=== PATIENT | female | born 1960 | race Caucasian/White ===

== ENCOUNTER 2018-06-22 07:42 | Outpatient (CLI) | payer BC | END 2018-06-22 07:43 | disposition home or self-care (01) | LOC: BICMAMMO 07:42 | PROVIDERS: ATTEND Family Medicine | DX: N63.20 Unspecified lump in the left breast, unspecified quadrant (principal) | CPT/HCPCS: 77066; G0279 ==

== ENCOUNTER 2018-06-22 07:47 | Outpatient (CLI) | payer BC | END 2018-06-22 07:48 | disposition home or self-care (01) | LOC: BICRAD 07:47 | PROVIDERS: ATTEND Family Medicine | DX: I48.0 Paroxysmal atrial fibrillation (principal); J39.8 Other specified diseases of upper respiratory tract; N63.20 Unspecified lump in the left breast, unspecified quadrant | CPT/HCPCS: 71046 ==

== ENCOUNTER 2018-07-03 16:15 | Inpatient (IN) | payer OTHER ==
[2018-07-03 16:24] VITALS: BMI 33.0
[2018-07-12] MEDS ORDERED: CEFAZOLIN/Water 2 GM/20 ML SYRINGE ONE (06:26)
[2018-07-12] MEDS ORDERED: Heparin 5,000 UNITS/ML VIAL ONE (06:26)
[2018-07-12] MEDS ORDERED: Bupivacaine/Epinephrine 0.25% 30 ML VIAL ONE (07:01)
[2018-07-12] MEDS ORDERED: Scopolamine 1.5 mg/72 hour Patch ONE (07:09)
[2018-07-12] MEDS ORDERED: Midazolam HCl 2 mg/2 ml Vial ONE ×2 (07:24→07:25)
[2018-07-12] MEDS ORDERED: Fentanyl 100 MCG/2 ML VIAL ONE (07:25)
[2018-07-12] MEDS ORDERED: Lidocaine 1% (PF) 30 ML VIAL ONE (07:25)
[2018-07-12] MEDS ORDERED: HYDROmorphone 2 MG/ML VIAL ONE ×2 (07:25→09:20)
[2018-07-12] MEDS ORDERED: Zolpidem Tartrate 5 MG TAB PO PRN (07:31)
[2018-07-12] MEDS ORDERED: HYDROmorphone 2 MG/ML VIAL SLOW IVP PRN (07:31)
[2018-07-12] MEDS ORDERED: diphenhydrAMINE 50 MG/ML VIAL IM PRN (07:31)
[2018-07-12] MEDS ORDERED: Promethazine HCl 25 MG/ML VIAL SLOW IVP PRN (07:31)
[2018-07-12] MEDS ORDERED: diphenhydrAMINE 25 MG CAP PO PRN (07:31)
[2018-07-12] MEDS ORDERED: diphenhydrAMINE 50 MG/ML VIAL IVP PRN ×2 (07:31→08:58)
[2018-07-12] MEDS ORDERED: Promethazine HCl 25 MG/ML VIAL IM PRN ×3 (07:31→08:58)
[2018-07-12] MEDS ORDERED: Naloxone HCl 0.4 mg/ml Vial IV PRN (07:31)
[2018-07-12] MEDS ORDERED: Ondansetron HCl/PF 4 MG/2 ML Vial IVP PRN ×3 (07:31→08:58)
[2018-07-12] MEDS ORDERED: HYDROmorphone 10 mg/100 ml CADD IVPB PRN (07:31)
[2018-07-12] MEDS ORDERED: Communication Order-Pharmacy FS SCH (07:45)
[2018-07-12] MEDS ORDERED: Hydrocodone-Acetamin 15 ML UDCUP PO PRN (08:58)
[2018-07-12] MEDS ORDERED: hydrALAZINE 20 MG/ML VIAL SLOW IVP PRN (08:58)
[2018-07-12] MEDS ORDERED: Dextrose 50% Abboject 50 ML SYRINGE SLOW IVP PRN (08:58)
[2018-07-12] MEDS ORDERED: Dextrose 5% in Water 1,000 ML IV PRN (08:58)
--- NOTE | 2018-07-12 09:35 | OP ---
DATE OF PROCEDURE: 07/12/2018 PREOPERATIVE DIAGNOSIS: Obesity. SURGEON: Alex Mendoza M.D. PROCEDURE: Laparoscopic sleeve gastrectomy, esophagogastroscopy. INDICATIONS: A 57-year-old female who has been obese for many years and attempted multiple weight lo ss programs without success. FINDINGS: A 38 Welsh bougie used. PROCEDURE IN DETAIL: After informed consent was obtained, the patient was taken to the operating dwight m and given general endotracheal anesthesia. She was placed in the supine position. The abdomen was prepped and draped in usual fashion. Local anesthesia infiltrated subcutaneously and deep and a 12 mm incision was performed approximately 8 inches below the xiphoid slightly to the left. Veress need le inserted. Drop test performed. Pneumoperitoneum was created to a volume of 2 liters of carbon di oxide. Utilizing a bladeless 12 mm trocar and 0 degree laparoscope, direct visual entry in the abdom inal cavity was performed. Pneumoperitoneum was created to a pressure of 15 mmHg and the patient abbi rakesh in steep reverse Trendelenburg position. Nathansen liver retractor inserted. Left lobe of liver retracted superiorly. Pylorus identified, a 12 mm port placed on the right beneath it and two 12s p laced left subcostal. The omentum was taken off the greater curvature 5 cm from the pylorus utilizin g the LigaSure. Short gastrics divided with LigaSure, left crura defined with the LigaSure. A 38-Fr ench bougie inserted directed into the antrum. Linear 60 mm green load stapler used to divide the an trum to the bougie, gold load along the bougie, and a series of blues through the angle of His. Intr aoperative endoscopy was performed. The video endoscope inserted under direct vision and advanced in to the sleeve. Staple line inspected. There was no bleeding. Staple line then tested by inflating the new stomach with pressurized air under water. There was no air leak. Stomach decompressed. Sco pe removed. The remnant stomach removed from the abdomen through the left lateral port site. The fa scia closed with 0 Vicryl suture and the GraNee needle. Trocars and retractors removed. The skin cl osed with interrupted 4-0 Rapide. Steri-Strips applied. Sterile bandage applied. The patient erwin ated the procedure well and was transferred to recovery in good condition. Sponge and needle count v erified correct x2.
[2018-07-12] MEDS: Ketorolac Tromethamine 30 MG/ML VIAL IVP SCH ×3 (13:31→21:11)
[2018-07-12] MEDS: D5 1/2 NS w/20 mEq KCL 1,000 ML IV SCH ×2 (13:32→21:18)
[2018-07-12] MEDS: Acetaminophen 1,000 MG in Premix Bag 1 BAG IVPB SCH ×3 (13:37→21:11)
[2018-07-12] MEDS: CEFAZOLIN/Water 2 GM/20 ML SYRINGE SLOW IVP SCH (16:54)
[2018-07-12] MEDS ORDERED: Pantoprazole 40 MG VIAL IVP SCH (21:00)
[2018-07-13] MEDS: CEFAZOLIN/Water 2 GM/20 ML SYRINGE SLOW IVP SCH (00:49)
[2018-07-13] MEDS: Ketorolac Tromethamine 30 MG/ML VIAL IVP SCH ×2 (02:29→08:43)
[2018-07-13] MEDS: Acetaminophen 1,000 MG in Premix Bag 1 BAG IVPB SCH ×2 (02:29→08:42)
[2018-07-13 04:59] LABS: #Lymphocytes 1.2 thou/uL (1.20-3.40); #Monocytes 0.4 thou/uL (0.11-0.59); #Neutrophils 4.7 thou/uL (1.40-6.50); %Basophils 0.4 % (0.0-1.0); %Eosinophils 0.3 % (0.0-10.0); %Lymphocytes 19.3 % (21.0-51.0); %Monocytes 6.2 % (0.0-10.0); %Neutrophils 73.7 % (42.0-75.0); Hemoglobin 12.1 g/dL (12.0-16.0); Mean Corpuscular HGB CONC 33.8 g/dL (32.0-36.0); Mean Corpuscular Hemoglobin 31.8 pg (27.0-31.0); Mean Corpuscular Volume 93.8 fL (78.0-98.0); Mean Platelet Volume 7.6 fL (7.4-10.4); Platelet Count 228 thou/uL (130-400); RBC Distribution Width 12.3 % (11.5-14.5); Red Blood Cell (RBC) Count 3.82 mill/uL (4.20-5.40); White Blood Cell (WBC) Count 6.4 thou/uL (4.8-10.8)
[2018-07-13 05:13] LABS: Anion Gap 8 mmol/L (10-20); BUN (Urea Nitrogen) 10 mg/dL (9.8-20.1); Calc. Creatinine Clearance 142 mL/min (70-130); Calcium 9.6 mg/dL (7.8-10.44); Carbon Dioxide 26 mmol/L (22-29); Chloride 108 mmol/L (98-107); Estimated GFR-MDRD 84; Glucose 110 mg/dL (70-105); Potassium 4.2 mmol/L (3.5-5.1); Sodium 138 mmol/L (136-145)
[2018-07-13] MEDS: D5 1/2 NS w/20 mEq KCL 1,000 ML IV SCH ×2 (05:32→08:44)
[2018-07-13] MEDS ORDERED: Enoxaparin Sodium 40 MG/0.4 ML SYRINGE SC SCH (09:00)
[2018-07-13] MEDS ORDERED: Mag-Al 1200 mg/1200 mg/30 ML UDCUP PO PRN (09:07)
[2018-07-13] MEDS ORDERED: Hydrocodone-Acetamin 15 ML UDCUP PO PRN (09:15)
[2018-07-13] MEDS ORDERED: Famotidine/PF 20 mg/2ml Vial SLOW IVP SCH (09:15)
--- NOTE | 2018-07-13 09:23 | RAD ---
ESOPHAGRAM: HISTORY: Gastric sleeve procedure. Bariatric surgery. FINDINGS: Single column contrast evaluation shows postoperative changes of the stomach consistent with gastric sleeve procedure. IMPRESSION: There is no evidence of obstruction or leak. POS: ORLIN
[2018-07-13 12:05] VITALS: BP 121/63; TEMP 97.9
--- NOTE | 2018-07-13 14:16 | DIS ---
DISCHARGE DIAGNOSIS: Morbid obesity. PROCEDURES DURING ADMISSION: Laparoscopic sleeve gastrectomy, intraoperative esophagogastroscopy, po stoperative Gastrografin swallow. HOSPITAL COURSE: The patient was admitted, IV taken to the operating room where she underwent a lapa roscopic sleeve gastrectomy. Postoperatively, she has done well. She had swallow study that was fin e. She was started on liquid. She is tolerating well. Pain control on p.o. medication. She is dis charged home on hydrocodone, Zofran. She will follow up with me in 2 weeks.
[2018-07-13] MEDS ORDERED: GASTROGRAFIN 30 ML BOT ONE (14:29)
== END 2018-07-13 12:11 | disposition home or self-care (01) | DRG 621 ==
LOC: SURG A 07-12 06:06 → SURG B 07-12 09:51
PROVIDERS: ADMIT Surgery; ATTEND Surgery
PROC: 0DB64Z3 Excision of Stomach, Percutaneous Endoscopic Approach, Vertical (ICD-10-PCS; principal; 2018-07-12)
DX: E66.9 Obesity, unspecified (principal); N63.0 Unspecified lump in unspecified breast; Z79.82 Long term (current) use of aspirin; I48.91 Unspecified atrial fibrillation; Z87.891 Personal history of nicotine dependence; Z68.33 Body mass index [BMI] 33.0-33.9, adult
CPT/HCPCS: 36415; 74241; 80048; 85025; 88307; 88312; 94760; C9113; J0131; J1170; J1644; J1650; J1885; J2001; J2250; J2405; J3010; S0028

== ENCOUNTER 2018-08-13 07:18 | Outpatient (CLI) | payer BC ==
[2018-08-13] MEDS ORDERED: Iopamidol 370 76% 100 ML VIAL ONE (09:00)
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
== END 2018-08-13 07:19 | disposition home or self-care (01) ==
LOC: SCSCT 07:18
PROVIDERS: ATTEND Family Medicine
DX: R91.8 Other nonspecific abnormal finding of lung field (principal)
CPT/HCPCS: 71260

== ENCOUNTER 2018-12-05 07:17 | Outpatient (CLI) | payer BC ==
--- NOTE | 2018-12-05 09:30 | CT ---
CT ARTERIOGRAM CHEST WITH IV CONTRAST AND 3D MIP IMAGING: History: Left subclavian artery aneurysm. Follow up. Comparison: 08-13-18 FINDINGS: The peripherally calcified trilobed aneurysm projecting superiorly and medially from the proximal por tion of the left subclavian artery is again demonstrated. When measured at the same places on today's study as the previous exam, it remains 4.4 x 3.1 cm greatest diameters on the axial images and the m iddle lobe, 3.1 cm length on the coronal images. No new aneurysms are apparent. There is little arter ial calcification elsewhere. No parenchymal lung mass, pleural fluid, or pneumothorax. Embedded metal lic foreign bodies within the right posterior chest wall are stable. Within the partially visualized upper abdomen, post-operative changes of the stomach are again demonstrated. IMPRESSION: Stable CT appearance of the trilobed partially calcified left subclavian artery aneurysm. No new abno rmalities are demonstrated. POS: ABI
== END 2018-12-05 07:18 | disposition home or self-care (01) ==
LOC: SCSCT 07:17
PROVIDERS: ATTEND Thoracic Surgery (Cardiothoracic Vascular Surgery)
DX: I72.8 Aneurysm of other specified arteries (principal)
CPT/HCPCS: 71275

== ENCOUNTER 2021-10-05 10:29 | Outpatient (CLI) | payer BC | END 2021-10-05 10:30 | disposition home or self-care (01) | LOC: BICMAMMO 10:29 | PROVIDERS: ATTEND Family Medicine | DX: Z12.31 Encounter for screening mammogram for malignant neoplasm of breast (principal) | CPT/HCPCS: 77063; 77067 ==

== ENCOUNTER 2022-12-20 10:05 | Outpatient (CLI) | payer BC | END 2022-12-20 10:06 | disposition home or self-care (01) | LOC: BICMAMMO 10:05 | PROVIDERS: ATTEND Family Medicine | DX: Z12.31 Encounter for screening mammogram for malignant neoplasm of breast (principal); Z13.820 Encounter for screening for osteoporosis; M81.0 Age-related osteoporosis without current pathological fracture; M85.851 Other specified disorders of bone density and structure, right thigh; M85.852 Other specified disorders of bone density and structure, left thigh | CPT/HCPCS: 77063; 77067; 77080 ==

== ENCOUNTER 2023-01-31 13:16 | Outpatient (CLI) | payer BC | END 2023-01-31 13:17 | disposition home or self-care (01) | LOC: BICRAD 13:16 | PROVIDERS: ATTEND Internal Medicine Rheumatology | DX: M17.0 Bilateral primary osteoarthritis of knee (principal); M81.0 Age-related osteoporosis without current pathological fracture; M47.814 Spondylosis without myelopathy or radiculopathy, thoracic region; M46.04 Spinal enthesopathy, thoracic region; M25.862 Other specified joint disorders, left knee; M25.861 Other specified joint disorders, right knee | CPT/HCPCS: 72070 ==

== ENCOUNTER 2024-01-03 09:56 | Outpatient (CLI) | payer BC | END 2024-01-03 09:57 | disposition home or self-care (01) | LOC: BICMAMMO 09:56 | PROVIDERS: ATTEND Family Medicine | DX: Z12.31 Encounter for screening mammogram for malignant neoplasm of breast (principal); Z98.890 Other specified postprocedural states | CPT/HCPCS: 77063; 77067 ==